=== PATIENT | male | born 1970 ===

== ENCOUNTER 2022-08-30 18:23 | Emergency (ER) | payer OTHER ==
[~2022-08-30] VITALS: Ht 190.5 cm; Wt 95.7 kg
[2022-08-30] MEDS ORDERED: LOSARTAN-HCTZ1 EACH PO (18:55)
[2022-08-30] MEDS ORDERED: XIGDUO XR 10 M1 EAC1 PO (18:55)
[2022-08-30] MEDS ORDERED: TYLENOL325 MG PO (18:55)
[2022-08-30] MEDS ORDERED: TRULICITY1.5 MG/0.5 SQ (18:56)
== END 2022-08-30 20:47 | disposition home or self-care (01) ==
LOC: ER 18:23
DX: I87.2 Venous insufficiency (chronic) (peripheral) (principal); E11.9 Type 2 diabetes mellitus without complications; Z79.84 Long term (current) use of oral hypoglycemic drugs; Z91.013 Allergy to seafood